=== PATIENT | female | born 1975 | race Two or more races ===

== ENCOUNTER 2021-03-22 06:58 | Day surgery (SDC) | payer OTHER | END 2021-03-22 20:25 | disposition home or self-care (01) | LOC: CIR.AMB 06:58 | PROVIDERS: ATTEND Surgery | DX: C50.812 Malignant neoplasm of overlapping sites of left female breast (principal); D24.1 Benign neoplasm of right breast; D24.2 Benign neoplasm of left breast; Z20.822 Contact with and (suspected) exposure to COVID-19 | CPT/HCPCS: 19357; 19303; 19120; 38525; 38792; C1789 ==

== ENCOUNTER 2021-05-03 06:10 | Day surgery (SDC) | payer OTHER | END 2021-05-03 19:00 | disposition home or self-care (01) | LOC: CIR.AMB 06:10 | PROVIDERS: ATTEND Surgery | DX: C50.411 Malignant neoplasm of upper-outer quadrant of right female breast (principal); C77.3 Secondary and unspecified malignant neoplasm of axilla and upper limb lymph nodes; Z90.11 Acquired absence of right breast and nipple; Z20.822 Contact with and (suspected) exposure to COVID-19 | CPT/HCPCS: 19357; 19303; 38525; 38792; C1789 ==